=== PATIENT | female | born 1950 | race Caucasian/White ===

== ENCOUNTER 2017-08-31 11:06 | Day surgery (SDC) | payer MEDICARE, BC ==
[~2017-08-31 11:06] MED LIST: Acetaminophen TAB* 325 MG PO PRN; Buffered Lidocaine 0.9% SYRIN* 5 ML/SYR SYRINGE INTRADERM ONE; Cyclopentolate 1% OPTH.SOL* 2 ML BTL ONE; Ketorolac 0.5% OPHTH (NF) 0.5 % 5 ML BTL ONE; Lidocaine 1%* 5 ML VIAL ONE; Lidocaine 2% EPI 1:200000 MPF*10-20 ML VIAL ONE; Neomycin/Polymy/Dex OPTH.SUSP* MAXITROL 0.1% 5 ML ONE; Phenylephrine 2.5% OPTH.SOL* 2 ML BTL ONE; Povidone Iodine 5% OPTH* 30 ML BTL ONE; Proparacaine 0.5% OPHTH.SOL* 15 ML BTL ONE; acetaZOLAMIDE TAB* 250 MG ONE
[2017-08-31] MEDS ORDERED: fentaNYL* 50 MCG/ML 2 ML VIAL (100 MCG VIAL) ONE (13:06)
[2017-08-31] MEDS ORDERED: Midazolam* 1 MG/ML 2 ML VIAL (2 MG) ONE ×2 (13:06→13:33)
[2017-08-31 14:04] VITALS: BP 119/46
--- NOTE | 2017-08-31 14:06 | OP ---
DATE OF OPERATION: 08/31/2017. DATE OF : 1950. SURGEON: Julius Lopez M.D. PREOPERATIVE DIAGNOSIS: Cataract right eye. POSTOPERATIVE DIAGNOSIS: Cataract right eye. OPERATIVE PROCEDURE: Extracapsular cataract extraction with intraocular lens implant right eye. PROCEDURE: The patient was brought to the operating room after being given 1/2% Alcaine with epineph rine drops in the preoperative area. The eye was prepped and draped in the usual sterile fashion. S terile drape and eyelid speculum were placed. Again, topical 1/2% Alcaine with epinephrine was given . A paracentesis incision was made at the 9 o'clock position with the No.75 blade. Clear cornea inc ision 2.2 x 2.2-mm was created at the 12 o'clock position starting at the anterior limbus using the 2 .2-mm keratome. The anterior chamber was irrigated with 0.4 mL of 1% non-preservative intracameral l idocaine and filled with DisCoVisc. A capsulorrhexis was completed using the cystotome and the Utrat a forceps. Hydrodissection was performed with balanced salt solution. The lens nucleus was removed w ith the Phacoemulsification handpiece without incident. Cortex was removed with the irrigation-aspir ation handpiece. The capsular bag was re-inflated using DisCoVisc and an [id number] 23 implant was inser jayna with the shooter. The irrigation-aspiration handpiece was used to remove all residual DisCoVisc. The eye was refilled with balanced salt solution and the wound checked and found to be watertight. Topical Maxitrol drops were given. [id number]/[facility] #: [id number]
== END 2017-08-31 14:05 | disposition home or self-care (01) ==
LOC: OREAST 11:06
PROVIDERS: ATTEND Specialist
DX: H25.811 Combined forms of age-related cataract, right eye (principal); H35.373 Puckering of macula, bilateral; Q14.3 Congenital malformation of choroid; E11.9 Type 2 diabetes mellitus without complications; Z79.84 Long term (current) use of oral hypoglycemic drugs; I10 Essential (primary) hypertension; D86.9 Sarcoidosis, unspecified; E78.00 Pure hypercholesterolemia, unspecified; M10.9 Gout, unspecified; R01.1 Cardiac murmur, unspecified; Z68.36 Body mass index [BMI] 36.0-36.9, adult; M19.90 Unspecified osteoarthritis, unspecified site
CPT/HCPCS: A9270-GY; J2250; J3010; V2632

== ENCOUNTER 2017-09-14 08:08 | Day surgery (SDC) | payer MEDICARE, BC ==
[~2017-09-14 08:08] MED LIST changes: -Acetaminophen TAB* 325 MG PO PRN; -Cyclopentolate 1% OPTH.SOL* 2 ML BTL ONE; -Ketorolac 0.5% OPHTH (NF) 0.5 % 5 ML BTL ONE; -Lidocaine 1%* 5 ML VIAL ONE; -Lidocaine 2% EPI 1:200000 MPF*10-20 ML VIAL ONE; -Neomycin/Polymy/Dex OPTH.SUSP* MAXITROL 0.1% 5 ML ONE; -Phenylephrine 2.5% OPTH.SOL* 2 ML BTL ONE; -Povidone Iodine 5% OPTH* 30 ML BTL ONE; -Proparacaine 0.5% OPHTH.SOL* 15 ML BTL ONE; -acetaZOLAMIDE TAB* 250 MG ONE
[2017-09-14] MEDS ORDERED: Proparacaine 0.5% OPHTH.SOL* 15 ML BTL ONE (10:13)
[2017-09-14] MEDS ORDERED: Lidocaine 1%* 5 ML VIAL ONE (10:13)
[2017-09-14] MEDS ORDERED: Ketorolac 0.5% OPHTH (NF) 0.5 % 5 ML BTL ONE (10:13)
[2017-09-14] MEDS ORDERED: Cyclopentolate 1% OPTH.SOL* 2 ML BTL ONE (10:13)
[2017-09-14] MEDS ORDERED: Lidocaine 2% EPI 1:200000 MPF*10-20 ML VIAL ONE (10:13)
[2017-09-14] MEDS ORDERED: Phenylephrine 2.5% OPTH.SOL* 2 ML BTL ONE (10:13)
[2017-09-14] MEDS ORDERED: Povidone Iodine 5% OPTH* 30 ML BTL ONE (10:13)
[2017-09-14] MEDS ORDERED: acetaZOLAMIDE TAB* 250 MG ONE (10:13)
[2017-09-14] MEDS ORDERED: Neomycin/Polymy/Dex OPTH.SUSP* MAXITROL 0.1% 5 ML ONE (10:13)
[2017-09-14] MEDS ORDERED: Lidocaine 2% MPF* 2 ML VIAL ONE (10:28)
[2017-09-14] MEDS ORDERED: Propofol* 10 MG/ML 20 ML BTL IV PUSH ONE (10:28)
[2017-09-14] MEDS ORDERED: Midazolam* 1 MG/ML 2 ML VIAL (2 MG) ONE (10:28)
[2017-09-14 10:59] VITALS: BP 112/51
--- NOTE | 2017-09-14 11:56 | OP ---
DATE OF OPERATION: 09/14/2017. DATE OF : 1950. SURGEON: Julius Lopez M.D. PREOPERATIVE DIAGNOSIS: Cataract left eye. POSTOPERATIVE DIAGNOSIS: Cataract left eye. OPERATIVE PROCEDURE: Extracapsular cataract extraction with intraocular lens implant left eye. PROCEDURE: The patient was brought to the operating room after being given 1/2% Alcaine with epineph rine drops in the preoperative area. The eye was prepped and draped in the usual sterile fashion. S terile drape and eyelid speculum were placed. Again, topical 1/2% Alcaine with epinephrine was given . A paracentesis incision was made at the 3 o'clock position with the No.75 blade. Clear cornea inc ision 2.2 x 2.2-mm was created at the 6 o'clock position starting at the anterior limbus using the 2. 2-mm keratome. The anterior chamber was irrigated with 0.4 mL of 1% non-preservative intracameral li docaine and filled with DisCoVisc. A capsulorrhexis was completed using the cystotome and the Utrata forceps. Hydrodissection was performed with balanced salt solution. The lens nucleus was removed wi th the Phacoemulsification handpiece without incident. Cortex was removed with the irrigation-aspira tion handpiece. The capsular bag was re-inflated using DisCoVisc and an SN60WF 22.5 implant was inse rted with the shooter. The irrigation-aspiration handpiece was used to remove all residual DisCoVisc . The eye was refilled with balanced salt solution and the wound checked and found to be watertight. Topical Maxitrol drops were given. [id number]/[facility] #: [id number]
== END 2017-09-14 11:11 | disposition home or self-care (01) ==
LOC: OREAST 08:08
PROVIDERS: ATTEND Specialist
DX: H25.812 Combined forms of age-related cataract, left eye (principal); H35.373 Puckering of macula, bilateral; E11.9 Type 2 diabetes mellitus without complications; Z79.84 Long term (current) use of oral hypoglycemic drugs; Q14.3 Congenital malformation of choroid; D86.0 Sarcoidosis of lung; I10 Essential (primary) hypertension; E78.2 Mixed hyperlipidemia; R73.01 Impaired fasting glucose; E55.9 Vitamin D deficiency, unspecified; H54.8 Legal blindness, as defined in USA
CPT/HCPCS: A9270-GY; J2250; J2704; V2632

== ENCOUNTER 2018-07-17 08:39 | Emergency (ER) | payer MEDICARE, BC ==
[2018-07-17 09:05] VITALS: BP 135/55
--- NOTE | 2018-07-17 09:12 | UC ---
Lower Extremity/Ankle HPI - HPI Summary HPI Summary: Patient presents to urgent care with her spouse. Patient's 68-year-old female with a history of gout and arthritis. Patient states since she's had progressive pain in her left ankle. Patient states this hurts with direct palpation with movement of her foot. No paresthesias. Patient's been taking Motrin and Tylenol with little relief. Patient has also been doing Epsom salts soaks. No trauma. No knee pain. No fevers or chills. Patient is on maintenance medication, colchicine, for her gout. Patient with history of arthritis in her feet but no problems with her heels. Patient does have a acid bleacher that she seen in [place]. Patient's medications reviewed this visit. - History of Current Complaint Chief Complaint: UCLowerExtremity Stated Complaint: LEFT FOOT CONCERN Time Seen by Provider: 07/17/18 08:54 Hx Obtained From: Patient Hx Last Menstrual Period: 15yrs Pain Intensity: 1 - Allergies/Home Medications Allergies/Adverse Reactions: Allergies Allergy/AdvReac Type Severity Reaction Status Date / Time No Known Allergies Allergy Verified 07/17/18 09:05 PMH/Surg Hx/FS Hx/Imm Hx Previously Healthy: Yes - Surgical History Surgical History: Yes Surgery Procedure, Year, and Place: HYSTERECTOMY,2001, [facility] [place]. GALLBLADDER, 1991, [facility] - Family History Known Family History: Positive: Non-Contributory - Social History Lives: With Family Alcohol Use: None Substance Use Type: None Smoking Status (MU): Never Smoked Tobacco Review of Systems All Other Systems Reviewed And Are Negative: Yes Constitutional: Positive: Negative Skin: Positive: Negative Eyes: Positive: Negative Musculoskeletal: Positive: Other: - left heel pain Physical Exam - Summary Physical Exam Summary: Vital Signs Reviewed: Yes A+Ox3, no distress Eyes: Conjunctiva Clear ENT: Hearing grossly normal neck: supple Respiratory: Positive: No respiratory distress, No accessory muscle use Cardiovascular: skin color reflect adequate perfusion Musculoskeletal Exam: slight limp, + SLE + flex/ext knee + posterior ankle with flex/ext + tenderness with flex/ext ankle posterior ankle + Point tenderness insertion of achilles tendon on left no defect + no pain along malleoli or tarsals Neurological: Positive: Alert, ambulatory without difficulty + gross sensation throughout Psychological: Positive: Normal Response To Family Skin: Positive: no rash, no ecchymosis, no erythema slight edema posterior ankle Triage Information Reviewed: Yes Vital Signs: Initial Vital Signs Temp 98.3 F 07/17/18 08:55 Pulse 66 07/17/18 08:55 Resp 18 07/17/18 08:55 BP 135/55 07/17/18 08:55 Pulse Ox 98 07/17/18 08:55 Diagnostics - Radiology No standard instances Radiology Interpretation Completed By: Radiologist - Attending Doctor: Marisol Sinclair ([id number]) Design Specialist: Jovany Dash ([id number]) Importer Exporter : VERA (NUANCE) Report Date: 07/17/2018 09:29:00 Report Status: Final Begin of Report Content Patient Name: BANDAR BYNUM Medical Record#: [id number] Ordering Physician: Marisol Sinclair MD Acct.#: [id number] : 1950 Age: 68 Sex: F Location: URGENT CARE [facility] Exam Date: 07/17/18928 ADM Status: REG ER Order Information: FOOT LEFT 3+ VWS Accession Number: [id number] CPT: 73374 Indication: LEFT Achilles insertion region pain. Comparison: No relevant prior exams available on the [facility] PACS for comparison. Technique: AP, lateral, and oblique views LEFT foot. Report: Joint space narrowing and subchondral sclerosis at the first metatarsal phalangeal joint. Periarticular chronic erosions at the head of the first metatarsal with overlying soft tissue swelling. Negative for fracture. Small Achilles tendon insertion and plantar fascia origin bone spurs. Diffuse soft tissue swelling including along the course of the Achilles tendon. IMPRESSION: #. 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 #. Soft tissue swelling including along the course of the Achilles tendon concerning for potential tendinopathy. Consider ultrasound or MRI for further assessment if deemed appropriate. <Electronically signed by Jovany Dash MD in OV> 07/17/18 1004 Dictated By: Jovany Dash MD Dictated Date/Time: 07/17/18 1004 Transcribed Date/Time: 07/17/18 1001 Copy to : CC:Dipika Muñiz MD; Marisol Sinclair MD Imaging - [facility] Imaging - [place] [facility] Imaging - [facility] [id number] [place] [id number] [place] [id number] ph ([phone]) ph ([phone]) ph ([phone]) End of Report Content Re-Evaluation - Re-Evaluation First Eval Comment: reviewed imaging with pt. pt with significant visual impairment - unable to navigate with crutches- has a cane. Place cam boot - pt reports markedly improved. refer to ortho/sports medicine. pred. strict return precaution Lower Extremity Course/Dx - Course Course Of Treatment: Patient presents to urgent care with discomfort in her left ankle this been progressive for the last 5 days. Patient states she has a history of arthritis and typically Motrin Tylenol helps. Patient stated has not been helping with this. No erythema no redness. Mild edema. No trauma. Patient takes colchicine daily for gout. Patient states this feels different and she's never had gout in her ankle. Patient's medications reviewed this visit. Vital signs are stable. On exam patient with tenderness at the insertion of her left Achilles. Mild edema. No erythema no warmth. Will check imaging. Suspect it' s tendinitis. Likely due to a course of prednisone. Will consider trying crutches or/and Cam Walker. We'll review once images are back. - Differential Dx/Diagnosis Provider Diagnosis: Achilles tendinitis Discharge - Sign-Out/Discharge Documenting (check all that apply): Patient Departure All imaging exams completed and their final reports reviewed: Yes - Discharge Plan Condition: Stable Disposition: HOME Prescriptions: predniSONE TAB* [Deltasone 20 MG TAB*] 20 mg PO DAILY #11 tab Patient Education Materials: Achilles Tendinitis (ED) Referrals: James Rob MD [Medical Doctor] - As Soon As Possible (Call today to schedule an appointment ) Dipika Muñiz MD [Primary Care Provider] - Additional Instructions: - Okay to alternate ibuprofen (Advil, Motrin) and tylenol every 3 hours for pain. Take with food - Take prednisone daily as prescribed - okay to apply ice (wrapped in a towel) 20 minutes at a time, 2-3 times a day - It is very important you minimize walking- use the walking boot with a cane or crutches at all time - contact Dr. Rob - orthopedic provider -call today to schedule a recheck this week - Billing Disposition and Condition Condition: STABLE Disposition: Home
== END 2018-07-17 10:35 | disposition home or self-care (01) ==
LOC: UCCORT 08:39
DX: M76.62 Achilles tendinitis, left leg (principal)
CPT/HCPCS: 99213; G0463